=== PATIENT | female | born 1970 | race Native Hawaiian/Other Pacific Islander ===

== ENCOUNTER 2017-05-23 21:18 | Emergency (ER) | payer OTHER ==
[~2017-05-23] VITALS: Ht 165.1 cm; Wt 61.2 kg
[2017-05-23 21:27] VITALS: TEMP 97.6
[2017-05-23] MEDS ORDERED: NEURONTIN800 MG PO (21:31)
[2017-05-23] MEDS ORDERED: IBUPROFEN200 M1 PO (21:32)
[2017-05-23 23:27] LABS: PLATELET COUNT 279 K/uL (152-353)
[2017-05-23 23:40] LABS: POTASSIUM 3.1 mmol/L (3.6-5.2)
[2017-05-24 01:02] VITALS: BP 138/68
== END 2017-05-24 01:04 | disposition short-term general hospital (02) ==
LOC: ED 21:18
PROVIDERS: Specialist
DX: I99.8 Other disorder of circulatory system (principal); I77.1 Stricture of artery
CPT/HCPCS: 80053; 82550; 82553; 85027; 85379; 85610; 85730; 96365; 96375; 99285; J1170; J1644; J2405

== ENCOUNTER 2017-05-24 00:05 | Outpatient (CLI) | payer OTHER ==
[~2017-05-24 00:05] MED LIST: IBUPROFEN200 M1 PO; NEURONTIN800 MG PO
== END 2017-05-24 00:23 | disposition short-term general hospital (02) ==
LOC: AMB 00:05
DX: I99.8 Other disorder of circulatory system (principal); I77.1 Stricture of artery
CPT/HCPCS: A0425; A0429

== ENCOUNTER 2017-10-12 07:13 | Emergency (ER) | payer OTHER ==
[~2017-10-12] VITALS: Ht 165.1 cm; Wt 61.2 kg
[2017-10-12 07:25] VITALS: TEMP 99.5
[2017-10-12 08:49] LABS: POTASSIUM 2.7 mmol/L (3.6-5.2)
[2017-10-12 09:14] LABS: PLATELET COUNT 43 K/uL (152-353)
[2017-10-12 10:56] VITALS: BP 108/71
== END 2017-10-12 10:58 | disposition home or self-care (01) ==
LOC: ED 07:13
PROVIDERS: Allergy & Immunology
DX: K85.90 Acute pancreatitis without necrosis or infection, unspecified (principal); D72.828 Other elevated white blood cell count; N30.80 Other cystitis without hematuria
CPT/HCPCS: 36415; 80053; 80307; 81000; 82150; 83690; 85027; 96361; 96374; 99284; J0696; J2405

== ENCOUNTER 2017-10-13 14:51 | Inpatient (IN) | payer OTHER ==
[~2017-10-13] VITALS: Ht 165.1 cm; Wt 57.6 kg
[2017-10-13] VITALS (14 sets, daily range): BP systolic 94–107; BP diastolic 58–83; TEMP 97.2–98; Ht 165.1 cm; Wt 57.6 kg
[2017-10-13 15:58] LABS: POTASSIUM 3.7 mmol/L (3.6-5.2)
[2017-10-13 16:08] LABS: PLATELET COUNT 25 K/uL (152-353)
[2017-10-14] VITALS (15 sets, daily range): BP systolic 88–107; BP diastolic 69–79; TEMP 97.7–98.9
[2017-10-14 06:29] LABS: PLATELET COUNT 27 K/uL (152-353)
== END 2017-10-14 15:25 | disposition short-term general hospital (02) | DRG 871 ==
LOC: ED 14:51 → ICU 16:20
PROVIDERS: Internal Medicine; ADMIT Family Medicine
DX: A41.89 Other specified sepsis (principal); J18.8 Other pneumonia, unspecified organism; K85.90 Acute pancreatitis without necrosis or infection, unspecified; K86.1 Other chronic pancreatitis; I38 Endocarditis, valve unspecified; E87.6 Hypokalemia; E83.42 Hypomagnesemia; G89.4 Chronic pain syndrome; Z72.0 Tobacco use; I99.8 Other disorder of circulatory system; F14.10 Cocaine abuse, uncomplicated; F15.10 Other stimulant abuse, uncomplicated
CPT/HCPCS: 36415; 36600; 80053; 80061; 80307; 81000; 82150; 82805; 83605; 83690; 83735; 85027; 86140; 87040; 87077; 87185; 87186; 87205; 87340; 96365; 96375; 99285; J0295; J1644; J2405; J3370; J3475; J3480

== ENCOUNTER 2017-10-14 15:32 | Outpatient (CLI) | payer OTHER | END 2017-10-14 16:58 | disposition short-term general hospital (02) | LOC: AMB 15:32 | DX: A41.89 Other specified sepsis (principal); J18.8 Other pneumonia, unspecified organism; K85.90 Acute pancreatitis without necrosis or infection, unspecified; K86.1 Other chronic pancreatitis; I38 Endocarditis, valve unspecified; E87.6 Hypokalemia; E83.42 Hypomagnesemia; G89.4 Chronic pain syndrome; Z72.0 Tobacco use; I99.8 Other disorder of circulatory system; F14.10 Cocaine abuse, uncomplicated; F15.10 Other stimulant abuse, uncomplicated | CPT/HCPCS: A0425; A0427 ==